=== PATIENT | female | born 1970 | race Caucasian/White ===

== ENCOUNTER 2019-03-10 16:10 | Emergency (ER) | payer OTHER ==
[2019-03-10] MEDS ORDERED: BACITRACIN 0.9 GM UD PCKT TOP ONE (17:22)
[2019-03-10] MEDS ORDERED: ACETAMINOPHEN 500 MG TAB PO ONE (17:22)
--- NOTE | 2019-03-10 17:25 | ED.PDOC ---
History of Present Illness - General Chief Complaint: Trauma Stated Complaint: s/p fall,facial pain,knee pain Time Seen by Provider: 03/10/19 16:53 - History of Present Illness Initial Comments: 48 yo F PMH Thyroid Disease has PMD for follow up presents to ED niece at bedside s/p mechanical fall prior to arrival and hit face on curb without LOC today. Denies fever chills nausea vomiting diarrhea chest pain sob diaphoresis. No change in diet rest bowel or bladder denies drinking or smoking admits FH HTN DM PSxHx hysterectomy h/o 'bone chip on the side of my spine as a kid' no other c/o today. Allergies/Adverse Reactions: Allergies Codeine Allergy (Verified 03/10/19 16:38) Latex Allergy (Verified 03/10/19 16:38) Meloxicam [From Mobic] Allergy (Verified 03/10/19 16:38) NSAIDs Allergy (Verified 03/10/19 16:38) Sulfa Antibiotics Allergy (Verified 03/10/19 16:38) Sulfamethoxazole w/Trimethoprim [From Bactrim] Allergy (Verified 03/10/19 16:38) Home Medications: Ambulatory Orders Acetaminophen [Tylenol] 650 mg PO Q6H PRN #30 tab 03/10/19 Amoxicillin & Pot Clavulanate [Augmentin Tab] 875 mg PO BID 10 Days #20 tab 03/10/19 Review of Systems - Review of Systems Constitutional: States: see HPI EENTM: States: see HPI Respiratory: States: no symptoms reported Cardiology: States: no symptoms reported Gastrointestinal/Abdominal: States: no symptoms reported Genitourinary: States: no symptoms reported Musculoskeletal: States: no symptoms reported Skin: States: other - abrasions to nose and [place] border Neurological: States: no symptoms reported, see HPI Endocrine: States: no symptoms reported, see HPI Hematologic/Lymphatic: States: no symptoms reported All other Systems: Reviewed and Negative Past Medical History (General) - Patient Medical History Hx Stroke: No Hx Congestive Heart Failure: No Hx Diabetes: No Surgical History: gastric bypass, Hysterectomy - Vaccination History Hx Influenza Vaccination: No - 2017 - Social History Hx Tobacco Use: No Family Medical History - Family History Mother Family History: Unknown Living Status: Unknown Physical Exam - Physical Exam General Appearance: No apparent distress Eye Exam: bilateral normal Ears, Nose, Throat: normal ENT inspection, other - no septal hematoma Neck: non-tender, full range of motion Respiratory: normal breath sounds Cardiovascular/Chest: regular rate, rhythm Gastrointestinal/Abdominal: non tender, soft Back Exam: normal inspection Extremity: normal range of motion Neurologic: no motor/sensory deficits Skin Exam: other - superficial abrasions to nose and [place] border Comments: TMs no hemotympanum no rhinorrhea no septal hematoma no racoon or randolph sign Progress - Progress Progress: 03/10/19 17:28 A/P-Closed Head Injury Fall Contusion Abrasion 1.tylenol c collar ct head c spine facial bones if unremarkable clean wounds topical bacitracin d/c tylenol augmentin follow up pcp 03/10/19 18:54 PROCEDURE: Cervical Spine CLINICAL HISTORY: 48 years Female trauma TECHNIQUE: Contiguous axial CT images obtained through the cervical spine without IV contrast. Coronal and sagittal reformatted images also provided. This CT exam was performed according to our departmental dose-optimization program, which includes one or more of the following dose reduction techniques: automated exposure control, adjustment of the mA and/or kV according to patient size, and/or use of iterative reconstruction technique. COMPARISON: No prior exams provided for comparison. FINDINGS: There is no acute cervical fracture or spondylolisthesis. There are remote, nonunited fractures at the tips of the C7 spinous process and left transverse process. No aggressive osseous lesion. There is minimal scattered multilevel degenerative disc disease and uncovertebral arthrosis. No visualized acute paraspinal soft tissue abnormality. The lung apices are clear. There is no central canal or neural foraminal stenosis at any cervical level. IMPRESSION: No acute cervical spine injury. Remote fractures at the tips of the C7 spinous process and left transverse process. No cervical stenosis. Electronically signed by: Janay Clark MD 03/10/2019 6:31 PM CDT EXAM DESCRIPTION: XR Knee, Right Complete CLINICAL HISTORY: 48 years Female FALL WITH PAIN TECHNIQUE: Three views of the right knee are provided. COMPARISON: No prior exams provided for comparison. FINDINGS: There appears to be a healed right proximal fibular fracture. There is no acute right knee fracture, dislocation, or suprapatellar joint effusion. Minimal primary osteoarthritis with spurring of the tibial spines. No aggressive osseous lesion. IMPRESSION: No acute findings in the right knee. Suspected healed right fibular fracture. Minimal primary osteoarthritis. Electronically signed by: Janay Clark MD 03/10/2019 6:33 PM CDT EXAM DESCRIPTION: XR Elbow, Right 3 Views CLINICAL HISTORY: 48 years Female FALL WITH PAIN TECHNIQUE: Three views of the right elbow are provided. COMPARISON: No prior exams provided for comparison. FINDINGS: There is no acute right elbow fracture, dislocation, or joint effusion. Joint spaces appear normal. There are no aggressive osseous lesions. IMPRESSION: Normal radiographs of the right elbow. Electronically signed by: Janay Clark MD 03/10/2019 6:32 PM CDT EXAM DESCRIPTION: Head CLINICAL HISTORY: 48 years Female trauma COMPARISON: None TECHNIQUE: Images were obtained in axial, sagittal, and coronal planes. This exam was performed according to our departmental dose-optimization program which includes use of Automated Exposure Control, adjustment of the mA and/or kV according to patient size and/or use of iterative reconstruction technique. FINDINGS: Ventricular system appears normal. No abnormal areas of increased or decreased attenuation are seen involving the brain parenchyma. No extra-axial fluid collections noted. No evidence for skull fracture. Mild sclerotic change right mastoid air cells. Unremarkable paranasal sinuses. IMPRESSION: No acute intracranial abnormality. No evidence for hemorrhage, mass lesion, or large acute infarction. Electronically signed by: Britt Dasilva MD 03/10/2019 6:25 PM CDT EXAM DESCRIPTION: Maxillofacial CLINICAL HISTORY: 48 years Female trauma COMPARISON: None TECHNIQUE: Images were obtained in axial, sagittal, and coronal planes. This exam was performed according to our departmental dose- optimization program which includes use of Automated Exposure Control, adjustment of the mA and/or kV according to patient size and/or use of iterative reconstruction technique. FINDINGS: No nasal bone fracture. Anterior maxillary spine is intact. No fractures orbits bilaterally. Zygomatic arches intact bilaterally. Unremarkable mild mucosal thickening left maxillary antrum. No air-fluid levels seen. No mandibular fracture. Pterygoid plates intact bilaterally. IMPRESSION: No acute fracture or subluxation seen. Electronically signed by: Britt Dasilva MD 03/10/2019 6:24 PM CDT - [id number] Departure - Departure Clinical Impression: Multiple abrasions Closed head injury Qualifiers: Encounter type: initial encounter Qualified Code(s): S09.90XA - Unspecified injury of head, initial encounter Fall Qualifiers: Encounter type: initial encounter Qualified Code(s): W19.XXXA - Unspecified fall, initial encounter Contusion Qualifiers: Encounter type: initial encounter Contusion area: head Contusion of head detail: nose Qualified Code(s): S00.33XA - Contusion of nose, initial encounter Time of Disposition: 19:03 Disposition: Discharge to Home or Self Care Condition: Good Departure Forms: ED Discharge - Pt. Copy, Patient Portal Self Enrollment Instructions: DI for Trauma Referrals: PEYTON GUAN [Primary Care Provider] - 1-2 Weeks Prescriptions: Acetaminophen [Tylenol] 650 mg PO Q6H PRN #30 tab PRN Reason: Pain Amoxicillin & Pot Clavulanate [Augmentin Tab] 875 mg PO BID 10 Days #20 tab Home Medications: Ambulatory Orders Acetaminophen [Tylenol] 650 mg PO Q6H PRN #30 tab 03/10/19 Amoxicillin & Pot Clavulanate [Augmentin Tab] 875 mg PO BID 10 Days #20 tab 03/10/19
[2019-03-10] MEDS ORDERED: CHLORHEXIDINE GLUCONATE 4 % 15 ML UD TOP ONE (18:00)
--- NOTE | 2019-03-10 18:26 | CT ---
EXAM DESCRIPTION: Maxillofacial CLINICAL HISTORY: 48 years Female trauma COMPARISON: None TECHNIQUE: Images were obtained in axial, sagittal, and coronal planes. This exam was performed according to our departmental dose-optimization program which includes use of Automated Exposure Control, adjustment of the mA and/or kV according to patient size and/or use of iterative reconstruction technique. FINDINGS: No nasal bone fracture. Anterior maxillary spine is intact. No fractures orbits bilaterally. Zygomatic arches intact bilaterally. Unremarkable mild mucosal thickening left maxillary antrum. No air-fluid levels seen. No mandibular fracture. Pterygoid plates intact bilaterally. IMPRESSION: No acute fracture or subluxation seen. Electronically signed by: Britt Dasilva MD 03/10/2019 6:24 PM CDT
--- NOTE | 2019-03-10 18:27 | CT ---
EXAM DESCRIPTION: Head CLINICAL HISTORY: 48 years Female trauma COMPARISON: None TECHNIQUE: Images were obtained in axial, sagittal, and coronal planes. This exam was performed according to our departmental dose-optimization program which includes use of Automated Exposure Control, adjustment of the mA and/or kV according to patient size and/or use of iterative reconstruction technique. FINDINGS: Ventricular system appears normal. No abnormal areas of increased or decreased attenuation are seen involving the brain parenchyma. No extra-axial fluid collections noted. No evidence for skull fracture. Mild sclerotic change right mastoid air cells. Unremarkable paranasal sinuses. IMPRESSION: No acute intracranial abnormality. No evidence for hemorrhage, mass lesion, or large acute infarction. Electronically signed by: Britt Dasilva MD 03/10/2019 6:25 PM CDT
--- NOTE | 2019-03-10 18:32 | CT ---
PROCEDURE: Cervical Spine CLINICAL HISTORY: 48 years Female trauma TECHNIQUE: Contiguous axial CT images obtained through the cervical spine without IV contrast. Coronal and sagittal reformatted images also provided. This CT exam was performed according to our departmental dose-optimization program, which includes one or more of the following dose reduction techniques: automated exposure control, adjustment of the mA and/or kV according to patient size, and/or use of iterative reconstruction technique. COMPARISON: No prior exams provided for comparison. FINDINGS: There is no acute cervical fracture or spondylolisthesis. There are remote, nonunited fractures at the tips of the C7 spinous process and left transverse process. No aggressive osseous lesion. There is minimal scattered multilevel degenerative disc disease and uncovertebral arthrosis. No visualized acute paraspinal soft tissue abnormality. The lung apices are clear. There is no central canal or neural foraminal stenosis at any cervical level. IMPRESSION: No acute cervical spine injury. Remote fractures at the tips of the C7 spinous process and left transverse process. No cervical stenosis. Electronically signed by: Janay Clark MD 03/10/2019 6:31 PM CDT
--- NOTE | 2019-03-10 18:33 | RAD ---
EXAM DESCRIPTION: XR Elbow, Right 3 Views CLINICAL HISTORY: 48 years Female FALL WITH PAIN TECHNIQUE: Three views of the right elbow are provided. COMPARISON: No prior exams provided for comparison. FINDINGS: There is no acute right elbow fracture, dislocation, or joint effusion. Joint spaces appear normal. There are no aggressive osseous lesions. IMPRESSION: Normal radiographs of the right elbow. Electronically signed by: Janay Clark MD 03/10/2019 6:32 PM CDT
--- NOTE | 2019-03-10 18:34 | RAD ---
EXAM DESCRIPTION: XR Knee, Right Complete CLINICAL HISTORY: 48 years Female FALL WITH PAIN TECHNIQUE: Three views of the right knee are provided. COMPARISON: No prior exams provided for comparison. FINDINGS: There appears to be a healed right proximal fibular fracture. There is no acute right knee fracture, dislocation, or suprapatellar joint effusion. Minimal primary osteoarthritis with spurring of the tibial spines. No aggressive osseous lesion. IMPRESSION: No acute findings in the right knee. Suspected healed right fibular fracture. Minimal primary osteoarthritis. Electronically signed by: Janay Clark MD 03/10/2019 6:33 PM CDT
[2019-03-10] MEDS ORDERED: AMOXICILLIN & POT CLAVULANATE 875 MG TAB PO ONE (19:06)
[2019-03-10 19:25] VITALS: BP 141/89; TEMP 97.5; O2SAT 100
== END 2019-03-10 19:26 | disposition home or self-care (01) ==
LOC: ER 16:10
DX: S09.90XA Unspecified injury of head, initial encounter (principal); S00.33XA Contusion of nose, initial encounter; S00.511A Abrasion of lip, initial encounter; W10.1XXA Fall (on)(from) sidewalk curb, initial encounter; Z87.81 Personal history of (healed) traumatic fracture; Z88.5 Allergy status to narcotic agent; Z91.041 Radiographic dye allergy status; Z88.6 Allergy status to analgesic agent; Z88.2 Allergy status to sulfonamides; Y92.89 Other specified places as the place of occurrence of the external cause
CPT/HCPCS: 70450; 70486; 72125; 73080; 73562; J3490